=== PATIENT | female | born 1975 | race Caucasian/White ===

== ENCOUNTER 2018-06-29 22:37 | Emergency (ER) | payer MEDICAID ==
[~2018-06-29] VITALS: Ht 152.4 cm; Wt 76.2 kg
[~2018-06-29 22:37] MED LIST: ATEN50TA8 PO; METF500T PO
[2018-06-29 22:50] VITALS: BP 162/100
--- NOTE | 2018-06-29 22:55 | NUR ---
PT PROVIDED URINE THEN AMBULATED TO LOBBY WITH VSS.
--- NOTE | 2018-06-29 23:10 | NUR ---
TO ER BED 10
--- NOTE | 2018-06-29 23:30 | NUR ---
43/F CAME IN ED WITH , C/O 06/29 CONSTANT RUQ/EPIGASRIC PAIN, X2 WEEKS. PT REPORTS NAUSEA, DENIES VOMITING, REPORTS DIARRHEA. LBM TODAY. PT DENIES FEVER. LUNG SOUNDS CLEAR BL. BS ACTIVE X4, ABD SOFT ROUND TENDER TO RUQ, DENIES LOWER QUADRANT TENDERNESS/PAIN. AOX4, RR EVEN AND UNLABORED. HX HTN, DM, BILIARY COLIC
[2018-06-29] MEDS ORDERED: NACL 0.9% 1,000 ML IV SCH (23:35)
[2018-06-29] MEDS ORDERED: FAMOTIDINE 20 MG TAB PO ONE (23:35)
[2018-06-29] MEDS ORDERED: KETOROLAC 30 MG/ML VIAL IVP ONE (23:35)
[2018-06-30 00:08] LABS: BASOPHILS % (AUTO) 0.3 % (0.0-2.0); EOSINOPHILS # (AUTO) 1.7 K/uL (0-0.4); HEMOGLOBIN 11.8 g/dL (12.0-16.0); LYMPHOCYTES # (AUTO) 2.8 K/uL (2.5-16.5); LYMPHOCYTES % (AUTO) 27.1 % (20.5-51.1); MEAN CORPUSCULAR HEMOGLOBIN 28 pg (27-31); MEAN CORPUSCULAR HGB CONC 34 g/dL (33-37); MEAN CORPUSCULAR VOLUME 82.9 fL (80-94); MONOCYTES # (AUTO) 0.9 K/uL (0.8-1.0); MONOCYTES % (AUTO) 8.6 % (1.7-9.3); NEUTROPHILS % (AUTO) 47.7 % (42.2-75.2); PLATELET COUNT (AUTO) 267 K/uL (140-450); RED BLOOD CELL COUNT(AUTO) 4.22 MIL/uL (4.20-5.40); RED CELL DISTRIBUTION WIDTH 14.6 % (11.6-13.7); WHITE BLOOD COUNT (AUTO) 10.5 K/uL (4.8-10.8)
[2018-06-30 00:24] LABS: APPEARANCE,URINE CLEAR (CLEAR); BILIRUBIN,URINE NEGATIVE (NEGATIVE); BLOOD, URINE NEGATIVE (NEGATIVE); COLOR,URINE YELLOW (YELLOW); LEUKOCYTE ESTERASE ,URINE NEGATIVE (NEGATIVE); NITRITE, URINE NEGATIVE (NEGATIVE); UGLUCOSE NEGATIVE (NEGATIVE)
[2018-06-30 00:31] LABS: ALBUMIN 3.5 g/dL (3.4-5.0); ANION GAP 10.3 (8-16); CARBON DIOXIDE 26.3 mmol/L (21-32); POTASSIUM 3.6 mmol/L (3.5-5.1); TOTAL BILIRUBIN 0.2 mg/dL (0.0-1.0)
[2018-06-30 00:38] LABS: EOSINOPHILS % (AUTO) 16.3 % (0.0-4.0)
[2018-06-30 00:42] LABS: CREATININE 0.8 mg/dL (0.6-1.3)
--- NOTE | 2018-06-30 01:27 | NUR ---
US AT BEDSIDE
[2018-06-30 02:59] VITALS: BP 138/85
--- NOTE | 2018-06-30 02:59 | NUR ---
Patient discharged with v/s stable. Written and verbal after care instructions given and explained. Patient alert, oriented and verbalized understanding of instructions. Ambulatory with steady gait. All questions addressed prior to discharge. ID band removed. Patient advised to follow up with PMD. Rx of GLENDA PITTMAN given. Patient educated on indication of medication including possible reaction and side effects. Opportunity to ask questions provided and answered.
== END 2018-06-30 02:59 | disposition home or self-care (01) ==
LOC: MED 22:37
DX: R10.11 Right upper quadrant pain (principal); R11.0 Nausea; F32.9 Major depressive disorder, single episode, unspecified; F41.9 Anxiety disorder, unspecified; E11.9 Type 2 diabetes mellitus without complications; I10 Essential (primary) hypertension; Z79.899 Other long term (current) drug therapy
CPT/HCPCS: 36415; 76705; 80053; 81003; 83690; 85025; 96374; 99285; J1885; J7030; Q0092

== ENCOUNTER 2019-01-17 19:22 | Emergency (ER) | payer MEDICAID ==
[~2019-01-17] VITALS: Ht 152.4 cm; Wt 76.2 kg
[2019-01-17 19:25] VITALS: BP 145/82
--- NOTE | 2019-01-17 19:25 | NUR ---
Pt presents to ed with difuse abd pain and epigastric pain with N/V/D x1 day. States cannot keep food/fluids down. Bowel sounds pesent x4 quadrants. No change in urination. Non-radiating pain, 8/10 with vomiting. Positioned in bed for comfort. Side rail up x1. Tachy at 118. Afebrile. A&Ox4. ER MD aware. Continue to monitor.
--- NOTE | 2019-01-17 19:25 | NUR ---
Pt ambulated to bed 3. Provided urine.
[2019-01-17] MEDS ORDERED: NACL 0.9% 1,000 ML IV ONE (19:41)
[2019-01-17] MEDS ORDERED: MORPHINE SULFATE 4 MG/ML SYR IVP ONE (19:45)
[2019-01-17] MEDS ORDERED: ONDANSETRON 4 MG/2 ML VIAL IVP ONE (19:45)
[2019-01-17 20:02] LABS: BASOPHILS % (AUTO) 0.1 % (0.0-2.0); EOSINOPHILS # (AUTO) 1.4 K/uL (0-0.4); EOSINOPHILS % (AUTO) 9.9 % (0.0-4.0); HEMATOCRIT 37.7 % (36-48); HEMOGLOBIN 12.3 g/dL (12.0-16.0); LYMPHOCYTES # (AUTO) 0.9 K/uL (2.5-16.5); LYMPHOCYTES % (AUTO) 6.7 % (20.5-51.1); MEAN CORPUSCULAR HEMOGLOBIN 24 pg (27-31); MEAN CORPUSCULAR HGB CONC 33 g/dL (33-37); MEAN CORPUSCULAR VOLUME 74.7 fL (80-94); MONOCYTES # (AUTO) 0.7 K/uL (0.8-1.0); MONOCYTES % (AUTO) 4.9 % (1.7-9.3); NEUTROPHILS # (AUTO) 10.8 K/uL (1.8-7.7); NEUTROPHILS % (AUTO) 78.4 % (42.2-75.2); PLATELET COUNT (AUTO) 338 K/uL (140-450); RED BLOOD CELL COUNT(AUTO) 5.05 MIL/uL (4.20-5.40); RED CELL DISTRIBUTION WIDTH 16.6 % (11.6-13.7); WHITE BLOOD COUNT (AUTO) 13.8 K/uL (4.8-10.8)
[2019-01-17 20:06] LABS: APPEARANCE,URINE HAZY (CLEAR); BILIRUBIN,URINE 1+ (NEGATIVE); BLOOD, URINE 3+ (NEGATIVE); COLOR,URINE YELLOW (YELLOW); LEUKOCYTE ESTERASE ,URINE TRACE (NEGATIVE); NITRITE, URINE NEGATIVE (NEGATIVE); UGLUCOSE NEGATIVE (NEGATIVE)
[2019-01-17 20:13] LABS: RBC,URINE TOO NUMEROUS TO COUN /HPF (0-5)
[2019-01-17 20:14] LABS: ANION GAP 12.8 (8-16); CARBON DIOXIDE 26.8 mmol/L (21-32); CREATININE 0.7 mg/dL (0.6-1.3); POTASSIUM 3.6 mmol/L (3.5-5.1)
[2019-01-17 20:20] LABS: ALBUMIN 3.6 g/dL (3.4-5.0); TOTAL BILIRUBIN 0.4 mg/dL (0.0-1.0)
[2019-01-17 21:50] VITALS: BP 133/90
--- NOTE | 2019-01-17 21:50 | NUR ---
DISCHARGE INSTRUCTIONS GIVEN. 0/10 PAIN. NO N/V/D. AFEBRILE. VSS. A&OX4. RX OF FLAGYL, ZOFRAN, AND BENTYL GIVEN. POSSIBLE SIDE EFFECTS EXPLAINED. VERBALIZED UNDERSTANDING OF DC INSTRUCTIONS. ALL QUESTIONS ANSWERED.
== END 2019-01-17 21:50 | disposition home or self-care (01) ==
LOC: MED 19:22
DX: R10.84 Generalized abdominal pain (principal); R11.10 Vomiting, unspecified; R19.7 Diarrhea, unspecified; E11.9 Type 2 diabetes mellitus without complications; I10 Essential (primary) hypertension; Z79.84 Long term (current) use of oral hypoglycemic drugs; Z79.899 Other long term (current) drug therapy
CPT/HCPCS: 36415; 74176; 80053; 81001; 81025; 82948; 83690; 85025; 87086; 96361; 96374; 96375; 99284; J2270; J2405; J7030